=== PATIENT | male | born 1995 | race American Indian/Alaskan Native ===

== ENCOUNTER 2021-08-03 16:22 | Emergency (ER) | payer OTHER ==
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
[2021-08-03 18:04] VITALS: BP 118/75
== END 2021-08-03 18:18 | disposition home or self-care (01) ==
LOC: ED 16:22
DX: M54.2 Cervicalgia (principal); M54.50 Low back pain, unspecified; V43.52XA Car driver injured in collision with other type car in traffic accident, initial encounter; Y93.89 Activity, other specified; Y92.89 Other specified places as the place of occurrence of the external cause; Y99.8 Other external cause status
CPT/HCPCS: 72040; 72100; 99283

== ENCOUNTER 2021-10-05 12:11 | Emergency (ER) | payer SELFPAY ==
[2021-10-05 12:58] VITALS: BP 137/71
== END 2021-10-05 14:49 | disposition left against medical advice (07) ==
LOC: ED 12:11
DX: M54.9 Dorsalgia, unspecified (principal); Z53.21 Procedure and treatment not carried out due to patient leaving prior to being seen by health care provider

== ENCOUNTER 2021-10-06 10:27 | Emergency (ER) | payer SELFPAY ==
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
[2021-10-06 13:32] VITALS: BP 121/79
== END 2021-10-06 13:32 | disposition home or self-care (01) ==
LOC: ED 10:27
DX: M54.50 Low back pain, unspecified (principal)
CPT/HCPCS: 99283